=== PATIENT | male | born 1980 | race Caucasian/White ===

== ENCOUNTER 2017-12-20 18:56 | Emergency (ER) | payer OTHER, SELFPAY ==
[2017-12-20] MEDS ORDERED: Lidocaine 1% w/Epinephrine 1:100K 20 ML VIAL ONE (19:01)
--- NOTE | 2017-12-20 19:35 | RAD ---
CHEST ONE VIEW: 12/20/17 HISTORY: Injury. COMPARISON: None. FINDINGS: Lungs are clear. No pneumothorax or effusion. The cardiac silhouette and mediastinal contours are wit hin normal limits. No acute osseous abnormality. No displaced rib fracture. IMPRESSION: No acute intrathoracic abnormality. POS: [facility]
[2017-12-20] MEDS ORDERED: Adacel (T-DAP) 0.5 ML VIAL ONE (19:57)
--- NOTE | 2017-12-20 20:05 | CT ---
CT BRAIN WITHOUT CONTRAST 12/20/17 HISTORY: Injury. COMPARISON: None. FINDINGS: There is some mild calcifications involving the tentorium cerebelli bilaterally. This is symmetric. N o acute hemorrhage or infarct. No midline shift or mass effect. Ventricular size and extra-axial CSF spaces are normal. 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 There is sequela of a calci fied old hematoma. IMPRESSION: No acute intracranial abnormality. POS: [facility]
== END 2017-12-20 20:23 | disposition home or self-care (01) ==
LOC: SCSER 18:56
DX: S01.81XA Laceration without foreign body of other part of head, initial encounter (principal); J45.909 Unspecified asthma, uncomplicated; Z23 Encounter for immunization; V43.52XA Car driver injured in collision with other type car in traffic accident, initial encounter
CPT/HCPCS: 12013; 70450; 71045; 90715; 99406; J2001

== ENCOUNTER 2024-05-01 08:23 | Outpatient (CLI) | payer OTHER | END 2024-05-01 08:24 | disposition home or self-care (01) | LOC: RAD 08:23 | PROVIDERS: ATTEND Internal Medicine | DX: R06.00 Dyspnea, unspecified (principal); R91.8 Other nonspecific abnormal finding of lung field; J98.4 Other disorders of lung | CPT/HCPCS: 71046 ==